=== PATIENT | male | born 1960 | race Caucasian/White ===

== ENCOUNTER → 2016-09-08 | Outpatient (CLI) | payer BC ==
[~2016-09-08] VITALS: Ht 167.6 cm; Wt 83.8 kg
[~2016-09-08] MED LIST: CYMBALTA60 MG PO; FLEXERIL PO; HYDROCODON-ACE1 EAC7 PO; HYDROXYZINE HCL25 M1 PO; IBUPROFEN 600600 M1 PO; IBUPROFEN 800800 M1 PO; LIPITOR40 MG PO; NABUMETONE 750750 M1 PO; NEURONTIN600 MG PO; OXYCODONE HCL E10 MG PO; REQUIP 1 MG TABL1 M1 PO; ROBAXIN 750 MG750 MG PO; TRILEPTAL150 MG PO
[2016-09-08 10:09] VITALS: BP 109/74
== END | disposition home or self-care (01) ==
LOC: PAIN 07:25
DX: M54.16 Radiculopathy, lumbar region (principal); F17.200 Nicotine dependence, unspecified, uncomplicated; Z98.890 Other specified postprocedural states; Z88.8 Allergy status to other drugs, medicaments and biological substances

== ENCOUNTER → 2016-10-14 | Outpatient (CLI) | payer BC ==
[~2016-10-14] VITALS: Ht 170.2 cm; Wt 83.0 kg
--- NOTE | ~2016-10-14 | HPC ---
[facility] [address] [place] [address] PAIN MANAGEMENT CONSULTATION Name: SINGH AVERY Room #: REG ANDREI Christie.#: [id number] Admission: 10/14/16 Attend Phys: Rodolfo Hoffman DO Discharge: Date of : 62 Report #: [id number] THIS REPORT FOR: //name// CC: JOSELIN Hoffman HISTORY OF PRESENT ILLNESS: The patient is a very pleasant 56-year-old gentleman being treated for lumbar radiculopathy status post decompressive laminectomy and fusion L3 through L5. Has ongoing right L2 and L3 radicular pain. He had 50% improvement following transforaminal epidural injection with still ongoing symptoms, concern for paresthesia in the leg. Strength is generally symmetric, slight decreased right hip flexion strength. The patient has started on Trileptal taking 2 at night with nominal efficacy. Does have some RLS symptoms, which have been longstanding, takes Requip 4 mg (1 mg 4 tablets at bedtime), he has started taking this in the morning due to ongoing spasm and paresthesia in the right leg. ASSESSMENT: Symptomatic lumbar radiculopathy status post decompressive laminectomy, neuropathic pain component in a gentleman who uses tobacco products, was counseled regarding smoking cessation. RECOMMENDATIONS: 1. We will increase Trileptal to 1 in the morning, 2 at night, I have taken the liberty of generating a 90 tablet prescription with 1 refill. 2. Repeat epidural injection today, we will trial a right of midline L2-L3 approach. Follow up in 3 weeks to evaluate efficacy. ASSESSMENT: Symptomatic lumbar radiculopathy status post decompressive laminectomy and fusion. PROCEDURE: Midline epidural injection under fluoroscopy. PROCEDURE NOTE: After both written and informed consent to include risk of spinal cord damage, increased pain, weakness and dural puncture, the patient was taken to the fluoroscopy suite, placed in the prone position. After sterile prep and drape, a skin wheal with lidocaine was raised. A 22-gauge epidural Tuohy needle was inserted in the midline at L2-L3 with good loss to resistance. Negative aspiration for cerebrospinal fluid or blood was noted. Then 1 mL of Omnipaque under biplanar fluoroscopy showed good spread within the epidural space. This was followed with 80 mg of triamcinolone plus 1 mL of 1.5% preservative-free Xylocaine, 0.5 mL Xylocaine was then injected to flush the [address] [address] PAIN MANAGEMENT CONSULTATION Name: GENASINGH GERARDO Room #: REG [facility] [id number] Admission: 10/14/16 Attend Phys: Rodolfo Hoffman DO Discharge: Date of : 62 Report #: [id number] needle; it was removed. The patient was monitored for an appropriate period of time and discharged in good and stable condition. <ELECTRONICALLY SIGNED> By: Rodolfo Hoffman DO 10/14/16 1225 [id number] Rodolfo Hoffman DO /ryanne
[2016-10-14 08:18] VITALS: BP 119/88
== END | disposition home or self-care (01) ==
LOC: PAIN 06:56
DX: M54.16 Radiculopathy, lumbar region (principal); Z98.890 Other specified postprocedural states; G62.9 Polyneuropathy, unspecified; F17.200 Nicotine dependence, unspecified, uncomplicated

== ENCOUNTER → 2016-11-18 | Outpatient (CLI) | payer BC ==
[~2016-11-18] VITALS: Ht 167.6 cm; Wt 79.4 kg
--- NOTE | ~2016-11-18 | HPC ---
[facility] [place] [address] [place] [address] PAIN MANAGEMENT CONSULTATION Name: SINGH AVERY Room #: REG Chito Christie.#: [id number] Admission: 11/18/16 Attend Phys: Rodolfo Hoffman DO Discharge: Date of : 62 Report #: [id number] THIS REPORT FOR: //name// CC: JOSELIN Hoffman DATE OF SERVICE: 11/18/2016 DATE OF SERVICE: 11/18/2016 HISTORY OF PRESENT ILLNESS: The patient is a 56-year-old gentleman initially seen in consultation back in 2014, was seen for symptomatic cervical radiculopathy at that time. He also had a component of left L4 radicular pain. He was somewhat lost to followup, returned to the pain clinic on 09/08/2016. He had recurrent pain, low back, right hip, groin and thigh. Status post laminectomy and fusion L3 through L5. Performed right L2-L3 transforaminal epidural injection. He returned on 10/14/2016 noting 50% improvement following the transforaminal epidural injection (right L2-L3), but the pain continued to problematic. We started Trileptal 2 tablets at night with nominal efficacy. He had discontinued gabapentin due to some hypotension. We progressed with the midline epidural injection at that visit. He returns to pain clinic today noting that the midline injection really afforded no significant relief. He thinks that Trileptal may be interfering with his vision. He notes ongoing pain, low back, right thigh and groin, exacerbated with activity. He rates the pain as a 4 on VAS presently, says it gets worse with work. He has a sales development coordinator structural welder. He was seen for prolonged visit today from 8:54 to 9:20. Greater than 50% of this 25+ minute visit was spent counseling the patient. The patient is loathe to use opiate analgesics. He has failed conservative therapy including sodium and calcium channel membrane stabilizing agents (Trileptal and gabapentin). We will have him wean off of the Trileptal due to lack of efficacy and some visual changes. Again, gabapentin did not afford a good efficacy and the patient felt that it made of a little bit hypotensive. He is frustrated that pain is interfering with function. PHYSICAL EXAMINATION: Shows a 56-year-old gentleman, BMI is 28.3 kilograms per meter squared. Vital signs stable as noted in the EMR. Alert and oriented to person, place and time, judged to be a reasonable historian. Rises from chair using armrest. Gait is tandem, but he has decreased right hip flexion and lower extremity extension strength. This, however, is fairly nominal. He can climb up and down stairs, states that weakness does not interfere with function, simply pain does. He has a followup appointment with his neurosurgeon next week. Again, he had only transient relief with epidural injections, both right [address] [address] PAIN MANAGEMENT CONSULTATION Name: SINGH AVERY Room #: REG ANDREI Nieves#: [id number] Admission: 11/18/16 Attend Phys: Rodolfo Hoffman DO Discharge: Date of : 62 Report #: [id number] L2-L3 transforaminal and right midline L2-L3 translaminar. IMAGING: I reviewed his MRI from 09/11/2016. Notes the aforementioned postoperative changes, L3 through L5 decompression and fusion. L2-L3 notes degenerative loss of disk height, small epidural soft tissue abnormality extending behind right of L3 abutting the nerve root, suggestive of postoperative changes. ASSESSMENT AND PLAN: We talked about therapeutic options. While he would be an excellent spinal cord stimulator candidate, unfortunately, as a structural welder, the electric field generated contraindicates spinal cord stimulator. We talked at length about this today. Understanding that with the spinal cord stimulator, he would not be able to return to work, he points out that with his current pain, he cannot continue to work either. He is very frustrated at this point. He is going to follow up with his surgeon. If there is a possible surgical intervention that does not involve extensive revision of his fusion, he would be interested in this. If, however, surgery is either not an option or the surgery is quite extensive, he would prefer to trial a spinal cord stimulator. He has obviously failed back surgery with ongoing radicular pain interfering with function and work. 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 Today, after a long discussion, the patient left with the following instructions: 1. Follow up with his surgeon next week. 2. Wean off of Trileptal, drop down to 2 tablets at night for 3 days, 1 tablet at night for 3 days, then discontinue. 3. Use given contact information for psychological evaluation if he wishes to move forward with spinal cord stimulator trial. 4. He was given print/video literature regarding Nevro high frequency stimulation. He was discharged in good and stable condition. Follow up will be as needed. Again, we will be happy to seek authorization for spinal cord stimulator trial at earliest possible date if the patient desire to move forward, again, we will require a psychological evaluation before moving forward with authorization for same. <ELECTRONICALLY SIGNED> By: Rodolfo Hoffman DO 11/21/16 1014 [id number] [id number] Rodolfo Hoffman DO /nt
[2016-11-18 08:38] VITALS: BP 144/88
== END | disposition home or self-care (01) ==
LOC: PAIN 07:03
DX: M54.12 Radiculopathy, cervical region (principal); F17.210 Nicotine dependence, cigarettes, uncomplicated

== ENCOUNTER → 2016-11-24 | Outpatient (CLI) | payer BC ==
[2016-11-24 13:13] LABS: CREATININE 0.8 mg/dL (0.7-1.3)
== END ==
LOC: LABMALL 12:38 → CAT 12:38
PROVIDERS: Neurological Surgery
DX: M47.816 Spondylosis without myelopathy or radiculopathy, lumbar region (principal); M48.16 Ankylosing hyperostosis [Forestier], lumbar region; M48.061 Spinal stenosis, lumbar region without neurogenic claudication

== ENCOUNTER → 2016-11-25 | Outpatient (CLI) | payer BC | END | disposition home or self-care (01) | LOC: RAD 08:59 | DX: M48.061 Spinal stenosis, lumbar region without neurogenic claudication (principal); M25.78 Osteophyte, vertebrae; M79.604 Pain in right leg; Z88.8 Allergy status to other drugs, medicaments and biological substances; Z79.899 Other long term (current) drug therapy ==

== ENCOUNTER → 2017-08-11 | Outpatient (CLI) | payer BC ==
[~2017-08-11] VITALS: Ht 170.2 cm; Wt 84.2 kg
[~2017-08-11] MED LIST changes: +HYDROCODONE-AP1 EAC6 PO; +IBUPROFEN 200200 M1 PO; +TRAMADOL 50 MG50 MG PO
--- NOTE | ~2017-08-11 | HPC ---
[facility] [place] [address] [place] [address] PAIN MANAGEMENT CONSULTATION Name: SINGH AVERY Room #: REG ANDREI Soriano.#: [id number] Admission: 08/11/17 Attend Phys: Susanna Gutierrez MD Discharge: Date of : 62 Report #: [id number] THIS REPORT FOR: //name// CC: JOSELIN Villanueva MD Physician staff DATE OF SERVICE: 08/11/2017 FOLLOWUP COMPLAINT: Pain and discomfort in the low back that goes down into the right leg, right groin, and into the right thigh. FOLLOWUP HISTORY: The patient is a 56-year-old gentleman who has been seen in the pain clinic by Dr. Rodolfo Hoffman. This is my first time meeting with this gentleman. He has a significant history of back problems. He has undergone back surgeries on 3 occasions. At this juncture, he has spinal surgery with screws and rods in the lumbar L3, L4, and L5 areas. At this juncture, he has continued to have pain and discomfort, which involves his right L2 nerve distribution. 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 Notes that there is pain and discomfort involving the right groin area/inner thigh. This area can be quite problematic. He is continuing to take medications of tramadol 50 mg about 4 times per day. He finds that ibuprofen is somewhat helpful. He has talked with Dr. Villanueva. He states that Dr. Villanueva at this juncture is not sure that additional surgery would be beneficial. He has talked with Dr. Rodolfo Hoffman. The patient has tried gabapentin. He has tried Trileptal. He has been given the option of considering nerve stimulation with a dorsal column stimulator. He works around high voltage welding equipment. Does not feel that a stimulator would be reasonable in this line of work at this juncture. The patient tries to refrain from use of any opioid medications. I am not sure whether or not they would be okayed at his job. States that he is aware of some people who are using opioid medications. He is somewhat concerned that given his young age of 56 years to stop at this juncture would be pretty devastating for him as well as his family and their economics. ALLERGIES: No known drug allergies. CURRENT MEDICATIONS: Tramadol 50 mg q.4 hours p.r.n.; ibuprofen 200 mg q. 4 hours p.r.n.; Requip 1 mg, takes 4 mg at bedtime; and Lipitor 40 mg. PAIN CLINIC ASSESSMENT: 1. History of osteoarthritis. The patient has some arthritic change in his low back area with surgeries in the lumbar area with rods and pedicle screws. [address] [address] PAIN MANAGEMENT CONSULTATION Name: SINGH AVERY Room #: REG CLI [facility].#: [id number] Admission: 08/11/17 Attend Phys: Susanna Gutierrez MD Discharge: Date of : 62 Report #: [id number] 2. Height 5 feet 7 inches, weight 185 pounds, BMI is 29. 3. Vital signs: Blood pressure 161/101, pulse 65, respiratory rate 16, room air saturation is 97. 4. Pain intensity 05/30. 5. Fall risk. The patient has not fallen in the last 3 months. 6. Blood thinner. The patient is not on a blood thinning medication. 7. Hypertension. The patient is being treated for hypertension. 8. Opiate therapy greater than 6 weeks. The patient is on tramadol and takes his medications on a daily basis. 9. Risk assessment tool. 10. Functional assessment tool. 11. Recreational drug use. The patient denies use of recreational drugs. 12. Tobacco: The patient smokes 1-1/2 pack of cigarettes per day. 13. Alcohol use. The patient occasional alcoholic use. PHYSICAL EXAMINATION: GENERAL: The patient is a well-developed white male, appears his stated age. He is alert and oriented x 3. His affect is appropriate. His is present. HEENT: Normocephalic, atraumatic. Extraocular eye muscles intact. Sclerae is nonicteric. Hearing is within normal limits. Mucous membranes are moist. NECK: Without adenopathy or JVD. HEART: Regular rate. ABDOMEN: Nontender. LUNGS: Nonlabored without rales or rhonchi. EXTREMITIES: Upper extremity, muscle strength is judged to be 5/5 for the major muscle groups with symmetry in muscle bulk. Lower extremity, the patient complains of pain and discomfort in the lower portion of his back. Has pain and discomfort in the right groin area in the L2 distribution as well as some discomfort in the groin area. The patient sits leaning to the left, notes that leaning toward the right exacerbates the pain and discomfort and becomes more problematic in the L2 dermatomal distribution. IMPRESSION: 1. Status post back surgery with continued pain and discomfort. Pain in the L2 dermatomal distribution on the right. 2. Hypertension. 3. Chronic intractable neuropathic pain. 4. Restless leg syndrome. RECOMMENDATIONS: We discussed treatment options with the patient. At this juncture, we will try Gralise (gabapentin) slow release. We have given the patient a script for this medication. He will take it as prescribed. He will call us if he has any problems with the medication. We have also provided the patient with hydrocodone 5/325. He will take the medication at home and note its effect. Hopefully, he finds that this medication is helpful, that he is able to control his pain and discomfort and remain gainfully employed. We would [facility] [address] [place] [address] PAIN MANAGEMENT CONSULTATION Name: SINGH AVERY [facility] #: [facility] [id number] Admission: 08/11/17 Attend Phys: Susanna Gutierrez MD Discharge: Date of : 62 Report #: [id number] like to thank you for letting us participate in his care. The patient states that he lives quite a distance from the pain clinic. He will call us if he has any concerns. By: [id number] Susanna Gutierrez MD /MARTHA
[2017-08-11 08:07] VITALS: BP 161/101
== END ==
LOC: PAIN 01-23 13:02
DX: I10 Essential (primary) hypertension (principal); G89.4 Chronic pain syndrome; M54.5 Low back pain; M79.605 Pain in left leg; G25.81 Restless legs syndrome; Z98.1 Arthrodesis status; Z87.891 Personal history of nicotine dependence

== ENCOUNTER → 2017-10-13 | Outpatient (CLI) | payer BC ==
[~2017-10-13] VITALS: Ht 170.2 cm; Wt 83.0 kg
[~2017-10-13] MED LIST changes: +GRALISE600 MG PO; +MEDROLDOSEPACK PO; +NORCO 5-325 TA1 EACH PO
--- NOTE | ~2017-10-13 | HPC ---
[facility] [address] [place] [address] PAIN MANAGEMENT CONSULTATION Name: SINGH AVERY Room #: REG ANDREI CopelandStefaniaBeth.#: [id number] Admission: 10/13/17 Attend Phys: Susanna Gutierrez MD Discharge: Date of : 62 Report #: [id number] THIS REPORT FOR: //name// CC: JOSELIN Gutierrez Physician staff DATE OF SERVICE: 10/13/2017 FOLLOWUP COMPLAINT: Here for renewal of medication. FOLLOWUP HISTORY: The patient is a 57-year-old gentleman who has been followed in the Pain Clinic because of chronic pain. As you recall, he has had some back surgeries. He has had surgery on three occasions. As noted some worsening of pain and discomfort again. Feels that it is on the left outside portion of his leg and about the L5-S1 area. Also, has pain in his right anterior thigh area approximately L2-L3. Notes that if he leans to the left, he has noted some worsening of pain and discomfort in the left leg. Leaning to the right, he has noted some increased pain and discomfort in the L2-L3 anterior portion of his thigh. Overall, he feels that he is limited in his ability to engage in certain activities. 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 He is somewhat concerned that he has had some recurrence of pain similar to that he had experienced in the past. He is not walking with a cane or anything, but feels that that might reoccur. This has left him in a conundrum. He was told by Dr. Villanueva the possibilities of surgery or injections are available. At this juncture, the patient is still trying to decide what approach he would like to take. He denies any bowel or bladder dysfunction. He feels that the Gralise medication is helpful. He also feels that hydrocodone was beneficial. He has not had any problems with the use of these medications. They are not clouding his sensorium. He is thinking clearly. He would like to continue with his medication and has returned for renewal of these medications. ALLERGIES: No known drug allergies. CURRENT MEDICATIONS: Tramadol 50 mg q.4 hours, ibuprofen 200 mg, Requip 1 mg, Lipitor 40 mg, gabapentin/Gralise, hydrocodone 5/325 one tablet b.i.d. PAIN CLINIC ASSESSMENT: 1. History of osteoarthritis in the lower back. 2. The patient has not been treated for rheumatoid arthritis. 3. Height 5 feet 7 inches, weight 183 pounds, BMI 28.7. 4. Vital signs: Blood pressure is 110/66, pulse 80, respiratory rate 14, room air saturation 97%. 5. Pain intensity 10. 6. Fall risk. The patient has not fallen in the last 3 months. 7. Blood thinner. The patient is not [place] [address] PAIN MANAGEMENT CONSULTATION Name: SINGH AVERY Room #: REG ANDREI Nieves#: [id number] Admission: 10/13/17 Attend Phys: Susanna Gutierrez MD Discharge: Date of : 62 Report #: [id number] 8. Hypertension. The patient has not been treated for hypertension. 9. Opioid therapy greater than 6 weeks. The patient has received hydrocodone to the Pain Clinic. 10. Risk assessment tool, low for opioid risk. 11. Functional assessment tool /. 12. Recreational drug use. The patient denies use of recreational drugs. 13. Tobacco: The patient smokes 1/2 pack of cigarettes and smoked for 30 years. 14. Alcohol: The patient denies frequent use of alcoholic beverages. PHYSICAL EXAMINATION: GENERAL: The patient is a well-developed, well-nourished white male. Appears his stated age. He is alert and oriented x 3. His affect is calm. HEENT: Normocephalic, atraumatic. Extraocular eye muscles intact. Sclerae nonicteric. Mucous membranes are moist. Hearing is within normal limits. NECK: Good range of motion without adenopathy or bruits. HEART: Regular rate. S1, S2. LUNGS: Clear to auscultation without rhonchi or rales. EXTREMITIES: Upper extremity muscle strength is judged to be 5/5 for the major muscle groups without sensory change or weakness, lower extremity muscle strength is judged to be 5/5 for the major muscle groups in the lower extremity. The patient has some pain and discomfort in the left L5-S1 area of his calf. The patient states that it involves the area down by his calf. The patient has some pain and discomfort in the L2-L3 area of the right anterior thigh. IMPRESSION: 1. Status post back surgery, three occasions with rods and pedicle screws in place. 2. Hypertension. 3. Chronic intractable neuropathic pain. 4. Restless leg syndrome. RECOMMENDATION: We discussed treatment options with the patient. Risks and benefits of an epidural steroid injection were discussed. At this juncture, we will try a conservative approach. The patient will try a Medrol Dosepak and note its efficacy. He will consider the possibility of undergoing epidural steroid injections in the future. He will continue with the gabapentin 600 mg 1 p.o. t.i.d. as well as hydrocodone 5/325. The patient will not use this medication. 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 [facility] [address] [place] [address] PAIN MANAGEMENT CONSULTATION Name: SINGH AVERY Room #: REG CLChito Soriano.#: [id number] Admission: 10/13/17 Attend Phys: Susanna Gutierrez MD Discharge: Date of : 62 Report #: [id number] We would like to thank you for letting us participate in his care. We hope he continues to improve. By: [id number] Susanna Gutierrez MD /nt
[2017-10-13 08:13] VITALS: BP 110/66
== END ==
LOC: PAIN 06:57
DX: M54.5 Low back pain (principal); G89.4 Chronic pain syndrome; I10 Essential (primary) hypertension; M79.2 Neuralgia and neuritis, unspecified; G25.81 Restless legs syndrome; Z79.899 Other long term (current) drug therapy

== ENCOUNTER → 2018-01-10 | Outpatient (CLI) | payer BC ==
[~2018-01-10] VITALS: Ht 170.2 cm; Wt 85.2 kg
[2018-01-10 08:58] VITALS: BP 114/75
== END ==
LOC: PAIN 06:28
DX: M54.5 Low back pain (principal); M79.651 Pain in right thigh; M19.90 Unspecified osteoarthritis, unspecified site; F17.200 Nicotine dependence, unspecified, uncomplicated; M25.551 Pain in right hip; M79.662 Pain in left lower leg; R10.30 Lower abdominal pain, unspecified; Z79.891 Long term (current) use of opiate analgesic

== ENCOUNTER → 2018-04-13 | Outpatient (CLI) | payer BC ==
[~2018-04-13] VITALS: Ht 170.2 cm; Wt 89.1 kg
[2018-04-13 08:23] VITALS: BP 120/85
--- NOTE | 2018-04-13 08:30 | NUR ---
Pain Clinic Assessment: 1. History of Osteoarthritis: YES History of Rheumatoid Arthritis: NO 2. Height: 5 ft. 7 in. 170.2 cm. Weight: 196.4 lb. oz. 89.087 kg. Patient's BMI: 30.8 3. Vital Signs: BP: 120/85 Pulse: 90 Resp: 14 Temp: 02 Sat: 14 ECG Mon: 4. Pain Intensity: 7-8 5. Fall Risk: Dizziness: N Needs help standing or walking: N Fallen in the last 3 months: N Fall risk comments: 6. Patient on Blood Thinner: None 7. History of Hypertension: N 8. Opioid Therapy greater than 6 weeks: Y Opiate Contract Signed: 10/13/17 9. Risk Assessment Tool Provided: Opioid Risk Tool 10. Functional Assessment Tool: 44 11. Recreational Drug Use: Never Drug Type: Tobacco Use: Current Every Day Smoker Tobacco Type: Cigarettes Amount or Packs/day: <1/2 How Many Years: Alcohol Use: No Frequency: Quant:
== END ==
LOC: PAIN 06:53
DX: M54.5 Low back pain (principal); M79.605 Pain in left leg; M79.604 Pain in right leg; M79.651 Pain in right thigh; F17.210 Nicotine dependence, cigarettes, uncomplicated; Z79.899 Other long term (current) drug therapy

== ENCOUNTER → 2018-07-13 | Outpatient (CLI) | payer BC ==
[~2018-07-13] VITALS: Ht 170.2 cm; Wt 87.0 kg
--- NOTE | ~2018-07-13 | HPC ---
[facility] [address] [place] [address] PAIN MANAGEMENT CONSULTATION Name: SINGH AVERY Room #: REG ANDREI CopelandStefaniaBeth.#: [id number] Admission: 07/13/18 ������������������ Attend Phys: Susanna Gutierrez MD Discharge: ������������������ Date of : 62 Report #: [id number] THIS REPORT FOR: //name// CC: JOSELIN Gutierrez DATE OF SERVICE: 07/13/2018 CHIEF COMPLAINT: Here for medication management. FOLLOWUP HISTORY: The patient is a 57-year-old gentleman, who has been followed in the Pain Clinic for medical management. He has had a number of back surgeries. Pain continues to be a problem. He has had fusion in his low back area. He has talked with his surgeon. At this juncture, his surgeon feels that he is not sure that surgery would be significantly beneficial. He has encouraged the patient to continue with a conservative approach, being managed with medications. The patient has considered the possibility of a spinal cord stimulator. 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 He has returned today for renewal of his medications. He feels that he is still using his medications and they are working reasonably well. He is having no side effects from them. He is able to think clearly. He is able to work in his environment without problem. ALLERGIES: No known drug allergies. CURRENT MEDICATIONS: Tramadol 50 mg one p.o. q. 4 hours, ibuprofen 200 mg, Requip 1 mg, Lipitor 40 mg, hydrocodone 5/325 one p.o. b.i.d., Gralise 600 mg t.i.d. PAST MEDICAL HISTORY, PAIN CLINIC ASSESSMENT AND PQRS: 1. The patient has a history of arthritic change in his low back area. He has undergone a number of surgeries. 2. He is not being treated for rheumatoid arthritis. 3. Height is 5 feet 7 inches, weight 196 pounds, BMI is 30. 4. Vital signs: Blood pressure 120/85, pulse is 90, respiratory rate 14, room air saturation is 94. 5. Pain intensity of 7-8 with activity and driving. Pain involves left calf and right thigh. 6. Blood thinner: The patient is not on a blood thinning medication. 7. Hypertension: The patient is not being treated for hypertension. 8. Opioids greater than 6 weeks: The patient is on an opioid medication and managed through the Pain Clinic. 9. Functional assessment tool: 44/70. 10. Recreational drug use: The patient denies. [address] [address] PAIN MANAGEMENT CONSULTATION Name: SINGH AVERY Room #: REG [facility]#: [id number] Admission: 07/13/18 ������������������ Attend Phys: Susanna Gutierrez MD Discharge: ������������������ Date of : 62 Report #: [id number] 11. Tobacco: The patient smokes less than one-half cigarettes per day. Again, we discussed the benefits of smoking cessation. 12. Alcohol: The patient drinks alcohol on occasional basis. PHYSICAL EXAMINATION: GENERAL: The patient is a well-developed, well-nourished, white male. He appears his stated age. He is alert and oriented x 3. His affect is appropriate. Speech is fluent. HEENT: Normocephalic, atraumatic. Extraocular eye muscles intact. Sclerae nonicteric. Mucous membranes are moist. HEENT: Normocephalic, atraumatic. Extraocular eye muscles intact. NECK: With good range of motion without adenopathy or bruits. HEART: Regular rate. S1 and S2. LUNGS: Clear to auscultation without rhonchi or rales. MUSCULOSKELETAL: Upper extremity muscle strength is judged to be 5/5 for the major muscle groups in the upper extremity. Lower extremity muscle strength is judged to be 5-/5. The patient has increased pain and discomfort when he is seated. He notes increased pain with bending while welding and leaning forward. He notes the pain continues to radiate down the L5-S1 dermatomal distribution in his left calf. The patient notes the pain is worse in the late afternoon as well as notes some pain in the L2-L3 area with forward leaning involving the right thigh. IMPRESSION: 1. Status post back surgery on three occasions with rods and pedicle screws in place. 2. Hypertension. 3. Chronic intractable pain with neuropathic component. 4. Restless leg syndrome. RECOMMENDATIONS: We discussed treatment options with the patient. At this juncture, we will continue with his medications. We will renew his medication. The patient is aware of the problems with opioids. He is aware that one can develop tolerance to this medication. He feels the medication is helpful and enables him to stay gainfully employed. He is able to think clearly. He is having no problems with working and his capacity. He would like to have his medications renewed. We discussed the risks and benefits of tobacco smoke and benefits of smoking cessation. We will continue with the patient's medication. A script for his medication for the next few months have been dispersed. He will call us should he have any concerns. Hopefully, he will continue to improve as time goes on. The patient will remain active. He will call us should he have any concerns. [address] [address] PAIN MANAGEMENT CONSULTATION Name: SINGH AVERY Room #: REG [facility].#: [id number] Admission: 07/13/18 ������������������ Attend Phys: Susanna Gutierrez MD Discharge: ������������������ Date of : 62 Report #: [id number] We would like to thank you for letting us participate in his care. ��������������������������������������������� ���������������������������������������� By: ��������������������������������������������� [id number] [id number] Susanna Gutierrez MD /nt
[2018-07-13 08:24] VITALS: BP 108/76
--- NOTE | 2018-07-13 08:30 | NUR ---
Pain Clinic Assessment: 1. History of Osteoarthritis: YES History of Rheumatoid Arthritis: NO 2. Height: 5 ft. 7 in. 170.2 cm. Weight: 191.8 lb. oz. 87.000 kg. Patient's BMI: 30.0 3. Vital Signs: BP: 108/76 Pulse: 79 Resp: 14 Temp: 02 Sat: ECG Mon: 4. Pain Intensity: 4 5. Fall Risk: Dizziness: N Needs help standing or walking: N Fallen in the last 3 months: N Fall risk comments: 6. Patient on Blood Thinner: None 7. History of Hypertension: N 8. Opioid Therapy greater than 6 weeks: Y Opiate Contract Signed: 10/13/17 9. Risk Assessment Tool Provided: Opioid Risk Tool 10. Functional Assessment Tool: 44 11. Recreational Drug Use: Never Drug Type: Tobacco Use: Current Every Day Smoker Tobacco Type: Cigarettes Amount or Packs/day: 1/2 How Many Years: Alcohol Use: No Frequency: Monthly Quant: 1-2
== END ==
LOC: PAIN 06:46
DX: Z76.0 Encounter for issue of repeat prescription (principal); I10 Essential (primary) hypertension; G89.4 Chronic pain syndrome; G25.81 Restless legs syndrome; Z79.899 Other long term (current) drug therapy; Z96.7 Presence of other bone and tendon implants

== ENCOUNTER → 2018-10-19 | Outpatient (CLI) | payer BC ==
[~2018-10-19] VITALS: Ht 170.2 cm; Wt 81.8 kg
--- NOTE | ~2018-10-19 | HPC ---
[facility] [address] [place] [address] PAIN MANAGEMENT CONSULTATION Name: SNIGH AVERY Room #: REG ANDREI Ezequiel#: [id number] Admission: 10/19/18 Attend Phys: Susanna Gutierrez MD Discharge: Date of : 62 Report #: [id number] THIS REPORT FOR: //name// CC: JOSELIN Gutierrez Physician staff DATE OF SERVICE: 10/19/2018 CHIEF COMPLAINT: Here for medications and I fell off a ladder. HISTORY: The patient is a 58-year-old gentleman who has been followed in the Pain Clinic because of chronic pain. As you recall, he has significant back problems. He has undergone surgeries. He continues to find his pain is problematic and feels that opioid medications have been helpful. He is able to continue to work. He has continued to take the medications as prescribed. He feels that they continue to be beneficial. He has had no complications with their use. He has considered the possibility of a spinal cord stimulator. 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 States that he was working up on high elevation. Feels that it was about 14 feet up. He was standing on a ladder. The ladder gave way. He fell. He fell down on the side of his house. There was a wall there. He fell on his left side and fractured some ribs, injured his elbow and has had trauma to his thigh. Feels that the ribs have begun to heal up. He was quite elated that he did not traumatize his back significantly. He has returned today for renewal of his medications. ALLERGIES: No known drug allergies. CURRENT MEDICATIONS: Tramadol 50 mg one p.o. q. 4 hours, ibuprofen 200 mg, Requip 1 mg, Lipitor 40 mg, hydrocodone 5/325 one p.o. b.i.d., Gralise 600 mg t.i.d. PAIN CLINIC ASSESSMENT/PQRS: 1. The patient has a history of arthritis in his low back area. He has undergone a number of surgeries. He is not being treated for rheumatoid arthritis. 2. Height 5 feet 7 inches, weight 191 pounds, BMI is 30. 3. Vital Signs: Blood pressure 108/76, pulse 79, respiratory rate 14, room air saturation is about 95%. 4. Pain intensity, 4/10. 5. Fall history: The patient has fallen. He fell in July from a ladder about 14 feet with some trauma to his left side with fractures of his ribs, injury of elbow and left knee area. 6. Blood thinner. The patient is not on a blood thinning medication. 7. Hypertension. The patient is not being treated for hypertension. 8. Opioids greater than 6 weeks. The patient receives medication from [address] [address] PAIN MANAGEMENT CONSULTATION Name: SINGH AVERY Room #: REG CLI [facility]#: [id number] Admission: 10/19/18 Attend Phys: Susanna Gutierrez MD Discharge: Date of : 62 Report #: [id number] source the Pain Clinic. 9. Risk assessment tool, low for opioid use. 10. Functional assessment tool, . 11. Recreational drug use. The patient denies. 12. Tobacco: The patient smokes daily. Smokes 1-1/2 pack of cigarettes per day, has smoked for a number of years. Benefits of smoking cessation has been discussed. 13. Alcohol. The patient denies frequent use of alcoholic beverages. Drinks about 1-2 alcoholic beverages monthly. PHYSICAL EXAMINATION: GENERAL: The patient is a well-developed, well-nourished white male. Appears his stated age. He is alert and oriented x 3. His affect is appropriate. Speech is fluent. HEENT: Normocephalic, atraumatic. Extraocular eye muscles intact. Sclerae nonicteric. Mucous membranes are moist. NECK: Without adenopathy or JVD. HEART: Regular rate. S1, S2. LUNGS: Clear to auscultation without rhonchi or rales. MUSCULOSKELETAL: Strength judged to be 5/5 for the major muscle groups in the upper extremity. Lower extremity muscle strength 5-/5. The patient has some pain and discomfort in the left elbow, which has some swelling. Also, has some continued swelling and soreness in the left area of his rib fractures. Has some healing on the left leg lateral side. IMPRESSION: 1. Status post back surgery on 3 occasions with rods and pedicle screws in place. 2. Hypertension. 3. Chronic intractable pain with neuropathic component. 4. Restless leg syndrome. RECOMMENDATIONS: We discussed treatment options with the patient. At this juncture, we will continue with his medication. He feels that the medications are helpful. He is finding benefit with the use of the gabapentin. Notes that the hydrocodone medication can be helpful as well. 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 This causes him to have increased discomfort because of the different positions required for his welding operations. He would like to continue with his medications. He is aware that 70,000 people as a result of opioid overdose last year. He is aware that the opioid medications can be less effective over time secondary to development of tolerance. A script for hydrocodone 5/325 one p.o. b.i.d. has been written. He has been provided a 3-month supply. He will also continue with gabapentin as written. [facility] [address] [place] [address] PAIN MANAGEMENT CONSULTATION Name: SINGH AVERY Room #: REG ANDREI Nieves#: [id number] Admission: 10/19/18 Attend Phys: Susanna Gutierrez MD Discharge: Date of : 62 Report #: [id number] We would like to thank you for letting us participate in his care. We hope he continues to improve. By: [id number] Susanna Gutierrez MD /nt
[2018-10-19 08:10] VITALS: BP 119/76
--- NOTE | 2018-10-19 08:17 | NUR ---
Pain Clinic Assessment: 1. History of Osteoarthritis: YES History of Rheumatoid Arthritis: NO 2. Height: 5 ft. 7 in. 170.2 cm. Weight: 180.4 lb. oz. 81.829 kg. Patient's BMI: 28.2 3. Vital Signs: BP: 119/76 Pulse: 62 Resp: 16 Temp: 02 Sat: 98 ECG Mon: 4. Pain Intensity: 3 5. Fall Risk: Dizziness: N Needs help standing or walking: N Fallen in the last 3 months: N Fall risk comments: 6. Patient on Blood Thinner: None 7. History of Hypertension: N 8. Opioid Therapy greater than 6 weeks: Y Opiate Contract Signed: 10/13/17 9. Risk Assessment Tool Provided: Opioid Risk Tool 10. Functional Assessment Tool: 44 11. Recreational Drug Use: Never Drug Type: Tobacco Use: Current Every Day Smoker Tobacco Type: Cigarettes Amount or Packs/day: 1/2 How Many Years: Alcohol Use: Yes Frequency: Monthly Quant: 1-2
== END ==
LOC: PAIN 07:47
DX: G89.29 Other chronic pain (principal); I10 Essential (primary) hypertension; G89.4 Chronic pain syndrome; G25.81 Restless legs syndrome; Z79.899 Other long term (current) drug therapy; Z98.890 Other specified postprocedural states

== ENCOUNTER → 2019-01-11 | Outpatient (CLI) | payer BC ==
[~2019-01-11] VITALS: Ht 170.2 cm; Wt 79.4 kg
[2019-01-11 09:42] VITALS: BP 123/81
--- NOTE | 2019-01-11 09:50 | NUR ---
Pain Clinic Assessment: 1. History of Osteoarthritis: spine hands knees History of Rheumatoid Arthritis: NO 2. Height: 5 ft. 7 in. 170.2 cm. Weight: 175.0 lb. oz. 79.380 kg. Patient's BMI: 27.4 3. Vital Signs: BP: 123/81 Pulse: 82 Resp: 16 Temp: 02 Sat: 100 ECG Mon: 4. Pain Intensity: 7 5. Fall Risk: Dizziness: N Needs help standing or walking: N Fallen in the last 3 months: N Fall risk comments: 6. Patient on Blood Thinner: None 7. History of Hypertension: N 8. Opioid Therapy greater than 6 weeks: Y Opiate Contract Signed: 10/13/17 9. Risk Assessment Tool Provided: low-0 10. Functional Assessment Tool: 11. Recreational Drug Use: Never Drug Type: Tobacco Use: Current Every Day Smoker Tobacco Type: Cigarettes Amount or Packs/day: 1/2 pack How Many Years: 37 Alcohol Use: No Frequency: Quant:
--- NOTE | 2019-01-14 07:57 | HPC ---
[facility] [address] [place] [address] PAIN MANAGEMENT CONSULTATION Name: SINGH AVERY Room #: REG Chito MMacy.#: [id number] Admission: 01/11/19 Attend Phys: Ailin Ramirez Discharge: Date of : 62 Report #: [id number] THIS REPORT FOR: //name// CC: Ailin BRADLEY Physician staff DATE OF SERVICE: 01/11/2019 CHIEF COMPLAINT: Chronic low back pain and lumbar radiculopathy. HISTORY OF PRESENT ILLNESS: This is a pleasant 58-year-old gentleman who returns to the pain clinic today for refill of his opioid medications that he finds very beneficial. 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 He has undergone surgery in the past and is hopeful to avoid any further surgeries. He rates his pain score as 7/10 today. It is elevated due to riding in the car which does increase his pain. He reports he is better when he is standing as well as using his medications. He denies any problem with constipation or daytime sleepiness. He reports his pain is a tingling, aching, constant pain that is located as I stated in his lower back down his right buttock, groin and thigh, occasionally he will have pain sensations in his left calf as well. ALLERGIES: No known drug allergies. CURRENT LIST OF MEDICATIONS: Hydrocodone 5/325 b.i.d. Gralise 600 mg tablets 3 at dinner time, ibuprofen p.r.n., Requip 4 mg at bedtime, atorvastatin 40 mg daily. PQRS: 1. He has a history of arthritic changes in his lumbar spine. Denies rheumatoid arthritis. 2. Height is 5 feet 7 inches, weight is 175, BMI is 27. 3. Vital signs 123/81, pulse is 82, respirations 16, oxygen sat is 100. 4. Pain score is 7/10. 5. Denies dizziness, does not need help walking or standing, has not fallen in the last 3 months. 6. The patient is not on any blood thinners or medicine for hypertension. 7. Opiate therapy is greater than 6 weeks; therefore, an opioid signed contract is on the chart. Risk assessment tool is low. Functional assessment is . 8. Recreational drug use, he denies. He is a current smoker of cigarettes, about half a pack a day and he denies any alcohol use. We did talk about the prescription monitoring system, patient is filling appropriately through his pharmacy in [place], but does not report to the prescription monitoring, but we were able to call them and find out his recent [facility] [address] [place] [address] PAIN MANAGEMENT CONSULTATION Name: GENA,SINGH GERARDO Room #: REG Chito Nieves#: [id number] Admission: 01/11/19 Attend Phys: Ailin Ramirez Discharge: Date of : 62 Report #: [id number] dates. The patient reports he does safeguard his meds at all times. PHYSICAL EXAMINATION: GENERAL: This is a well-developed, well-nourished 58-year-old gentleman who appears his stated age, placing his current pain score at 7/10 today. He is alert and orientated. HEENT: Normocephalic, atraumatic. Extraocular eye muscles are intact. Mucous membranes are moist. NECK: Without adenopathy or JVD. MUSCULOSKELETAL: Lower extremity strength judged to be 5/5 with strength and sensation. He has discomfort in his lumbar spine that radiates into his right leg following L4-L5 dermatomal distribution. He walks with a slightly antalgic gait. IMPRESSION: 1. Status post back surgery causing chronic back pain. 2. Hypertension. 3. Chronic intractable pain with neuropathic component. 4. Restless legs syndrome. 5. Tobacco cessation discussed decreasing. 6. Complex medical management under terms of written opioid agreement. We reviewed the fact that opiate medications are being used to provide analgesia adequate to support activities of daily living, not attempting to achieve a specific pain score on the 0-10 Visual Analog Scale. The current opiate medications are providing sufficient analgesia to allow the patient to participate in activities of daily living. The patient is not exhibiting any aberrant behavior suggestive of drug diversion. The patient is not having any adverse reactions to medications. The patient is not suffering from daytime somnolence or mental acuity changes. The patient is managing opiate-induced constipation with appropriate gwwx-pzl-rbznoar agents and dietary considerations. The patient was counseled on concern for caution with operating a motor vehicle while using opiate medications. A physical exam was performed and the patient's functional status was evaluated. All patients with back pain were advised against the bed rest greater than 4 days and were advised to return to normal activities. Pain score assessment was noted and the treatment plan was reviewed with the patient. All current medications, both prescribed and OTC were reviewed and reconciled on the electronic medical record. Tobacco screening was accomplished and smoking cessation was advised when indicated. BMI was noted and diet/exercise modification was recommended for all patients following outside normal parameters. PLAN: 1. We discussed treatment options with the patient today. At this juncture, we [address] [address] PAIN MANAGEMENT CONSULTATION Name: SINGH AVERY Room #: REG ANDREI Nieves#: [id number] Admission: 01/11/19 Attend Phys: Ailin Ramirez Discharge: Date of : 62 Report #: [id number] will continue his medications, which he finds very beneficial. He is able to continue working, some days he is able to take 2 Gralise tablets when his pain is slightly better this affords him the ability to take 4 on days that his pain has increased significantly. Today, we will electronically send his Gralise 600 mg 3 capsules #270, which is a 3-month supply with one additional refill. 2. We did prescribe hydrocodone 5/325, #60 for today for an 8-week release. This places him at 10 morphine mEq according to the CDC guidelines. 3. We did discuss smoking cessation. He smokes half a pack a day, encouraged him to decrease this, though patient did not seem too interested in this discussion. 4. The patient denies any problems with constipation or daytime sleepiness as a result of his medications. 5. Dr. Sonny Gutierrez did collaborate care today and did see the patient as well. <ELECTRONICALLY SIGNED> By: Ailin Ramirez 01/14/19 [id number] 00 Ailin Ramirez /nt
== END ==
LOC: PAIN 01-09 12:56
DX: M54.16 Radiculopathy, lumbar region (principal); I10 Essential (primary) hypertension; G89.29 Other chronic pain; G25.81 Restless legs syndrome; Z79.891 Long term (current) use of opiate analgesic

== ENCOUNTER → 2019-04-19 | Outpatient (CLI) | payer BC ==
[~2019-04-19] VITALS: Ht 167.6 cm; Wt 81.4 kg
[~2019-04-19] MED LIST changes: +WORK NOTE
[2019-04-19 08:15] VITALS: BP 128/73
--- NOTE | 2019-04-19 08:20 | NUR ---
Pain Clinic Assessment: 1. History of Osteoarthritis: spine hands knees History of Rheumatoid Arthritis: NO 2. Height: 5 ft. 6 in. 167.6 cm. Weight: 179.4 lb. oz. 81.375 kg. Patient's BMI: 29.0 3. Vital Signs: BP: 128/73 Pulse: 79 Resp: 18 Temp: 02 Sat: 98 ECG Mon: 4. Pain Intensity: 4 5. Fall Risk: Dizziness: N Needs help standing or walking: N Fallen in the last 3 months: N Fall risk comments: 6. Patient on Blood Thinner: None 7. History of Hypertension: N 8. Opioid Therapy greater than 6 weeks: Y Opiate Contract Signed: 10/13/17 9. Risk Assessment Tool Provided: low-0 10. Functional Assessment Tool: 11. Recreational Drug Use: Never Drug Type: Tobacco Use: Current Every Day Smoker Tobacco Type: Amount or Packs/day: How Many Years: Alcohol Use: No Frequency: Quant:
--- NOTE | 2019-04-29 22:53 | HPC ---
[facility] [address] [place] [address] PAIN MANAGEMENT CONSULTATION Name: SINGH AVERY Room #: REG ANDREI Soriano.#: [id number] Admission: 04/19/19 Attend Phys: Susanna Gutierrez MD Discharge: Date of : 62 Report #: [id number] THIS REPORT FOR: cc: NANDA BRADLEY MD Physician not on staff Susanna Gutierrez MD ~ CC: NANDA Gutierrez Physician staff DATE OF SERVICE: 04/19/2019 PRIMARY CARE PHYSICIAN: Dr. Nanda Bradley. CHIEF COMPLAINT: "I am having some left shoulder pain and some pain in my hands and knees." HISTORY: The patient is a 58-year-old gentleman who has been followed in the pain clinic. As you recall, he has a number of problems. He has undergone surgeries. Continues to have pain and discomfort in the lower portion of his back. He had been given the option of considering a spinal cord stimulator. 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 Continues to use medications sparingly. He finds that these medications enable him to continue to be gainfully employed when his job requires welding with lots of bending and twisting. He has returned today with the hopes of renewing his medications. He feels that the Gralise medication has been more helpful than gabapentin. Rates his pain as a 4/10. Still has some numbness and tingling, pain and discomfort as well as muscle spasm in the back area. Does note that riding a car can be somewhat exacerbating. He has a 2.[address] to the pain clinic. This does increase his pain level after the long ride. ALLERGIES: No known drug allergies. CURRENT MEDICATIONS: Tramadol 50 mg one p.o. q. 4 hours, ibuprofen 200 mg, Requip 1 mg, Lipitor 40 mg, hydrocodone 5/325 one p.o. b.i.d., Gralise 600 mg t.i.d. PAIN CLINIC ASSESSMENT AND PQRS: 1. The patient does have a history of osteoarthritis involving his back, spine, hands and knees. He is not being treated for rheumatoid arthritis. He does have some pain in his left shoulder. 2. Height is 5 feet 6 inches, weight 179 pounds, BMI is 29. 3. Vital signs: Blood pressure 128/73, pulse 79, respiratory rate 18, room air saturation 98.6. 4. Pain intensity 4/10. 5. Fall history: The patient has not fallen since we saw him last. [facility] [address] [place] [address] PAIN MANAGEMENT CONSULTATION Name: SINGH AVERY Room #: REG [facility]#: [id number] Admission: 04/19/19 Attend Phys: Susanna Gutierrez MD Discharge: Date of : 62 Report #: [id number] 6. Blood thinner. The patient is not on a blood thinning medication. 7. Hypertension. The patient is not being treated for hypertension. 8. Opioids greater than 6 weeks. The patient received medication from one source, pain clinic. 9. Risk assessment tool, low for opioid use. 10. Functional assessment tool . 11. Recreational drug use: The patient denies. 12. Tobacco: The patient stopped smoking 20 years ago. 13. Alcohol. The patient denies frequent use of alcoholic beverages. PHYSICAL EXAMINATION: GENERAL: The patient is a well-developed, well-nourished white male. Appears his stated age. Does complain of pain and discomfort in the low back area. Has some pain that radiates down into the low back and lower leg area: The patient is a well-developed, well-nourished white male. He is alert and oriented x 3. HEART: Regular rate. ABDOMEN: Nontender. EXTREMITIES: Upper extremity muscle strength judged to be 5-/5. Does have some pain in the left shoulder area. Lower extremity muscle strength judged to be 5-/5 for the major muscle groups in the lower extremity. The patient does have some pain and discomfort that radiates down into the lumbar area. IMPRESSION: 1. Status post back surgeries x 3 with rods and pedicle screws in place. 2. Hypertension. 3. Chronic intractable pain treated with neuropathic pain medications as well as opioids. 4. Restless leg syndrome. RECOMMENDATIONS: We discussed treatment options with the patient. At this juncture, he feels his medications are helpful. He is aware that the opioid medications can become problematic for certain people. He does not show any signs of opioid addiction. He has taken the medication as prescribed. Keeps his medications in a guarded area. We have discussed the benefits of release in helping control pain. The patient still has quite a bit of problems with restless leg syndrome. He is using Requip. He will continue with this medication. He will also continue with hydrocodone 5 mg 1 p.o. b.i.d. He states that these medications are having no effect on his thinking. He is able to think clearly and perform his job without any concerns. A script for his medications of hydrocodone 5 mg 1 p.o. b.i.d. has been rewritten. The patient will follow up in about 3 months. He will also continue with gabapentin 600 mg 1 p.o. t.i.d., taking 1800 mg with dinner. [address] [place] [address] PAIN MANAGEMENT CONSULTATION Name: GENASINGH VILLEDA Room #: REG ANDREI M.R.#: [id number] Admission: 04/19/19 Attend Phys: Susanna Gutierrez MD Discharge: Date of : 62 Report #: [id number] We would like to thank you for letting us participate in his care. We hope he continues to improve. <ELECTRONICALLY SIGNED> By: Susanna Gutierrez MD 04/29/19 [id number] Susanna Gutierrez MD /PMT
== END ==
LOC: PAIN 06:47
DX: M25.512 Pain in left shoulder (principal); I10 Essential (primary) hypertension; G89.4 Chronic pain syndrome; G25.81 Restless legs syndrome

== ENCOUNTER → 2019-07-19 | Outpatient (CLI) | payer BC ==
[~2019-07-19] VITALS: Ht 167.6 cm; Wt 79.7 kg
--- NOTE | ~2019-07-19 | HPC ---
[facility] [address] [place] [address] PAIN MANAGEMENT CONSULTATION Name: SINGH AVERY Room #: REG ANDREI Soriano.#: [id number] Admission: 07/19/19 Attend Phys: Susanna Gutierrez MD Discharge: Date of : 62 Report #: [id number] THIS REPORT FOR: cc: JOSELIN BRADLEY MD Physician not on staff Susanna Gutierrez MD ~ CC: JOSELIN Gutierrez Physician staff DATE OF SERVICE: 07/19/2019 CHIEF COMPLAINT: Here for medications. HISTORY: The patient is a 58-year-old gentleman who has been followed in the pain clinic because of chronic pain involving his legs. He continues to have some problems with his back. He is not a spinal cord stimulator candidate because of his job. He does welding. The patient feels that his medications are helpful. He has some tingling, aching and spasms. Notes that the pain can be exacerbated by riding in a car. Standing for a prolonged periods of time is problematic. He drives 2.5 hours to get to the pain clinic. This generally escalates his pain condition. ALLERGIES: No known drug allergies. CURRENT MEDICATIONS: Tramadol 50 mg one p.o. q. 4 hours, ibuprofen 200 mg, Requip 1 mg, Lipitor 40 mg, hydrocodone 5/325 one p.o. b.i.d., Gralise 600 mg t.i.d. PAIN CLINIC ASSESSMENT AND PQRS: 1. The patient has a history of osteoarthritis involving his back, spine, hands and knees. He is not being treated for rheumatoid arthritis. He does have some left shoulder pain. 2. Height 5 feet 6 inches, weight 175 pounds, BMI is 28.4. 3. Vital signs: Blood pressure 127/72, pulse 70, respiratory rate 16, room air saturation 98%. 4. Pain intensity 3-4/10. 5. Fall history: The patient has not fallen. 6. Blood thinner. The patient is not on a blood thinning medication. 7. Hypertension. The patient is not being treated for hypertension. 8. Opioids greater than 6 weeks, receives medication from one source. 9. Risk assessment tool, low for opioid use. 10. Functional assessment tool . 11. Recreational drug use. The patient denies. 12. Tobacco: The patient is a current smoker, smokes cigarettes. 13. Alcohol. The patient denies use of alcoholic beverages. [facility] [address] [place] [address] PAIN MANAGEMENT CONSULTATION Name: SINGH AVERY Room #: REG CLI [facility]#: [id number] Admission: 07/19/19 Attend Phys: Susanna Gutierrez MD Discharge: Date of : 62 Report #: [id number] PHYSICAL EXAMINATION: GENERAL: The patient is a well-developed, well-nourished white male. Appears his stated age. He is alert and oriented x 3. He has pain and discomfort in the low back area. Has some pain radiating down the back and lower portion of his legs. HEART: Regular rate. ABDOMEN: Nontender. EXTREMITIES: Upper extremity muscle strength judged to be 5/5 for the major muscle groups in the upper extremity. Lower extremity, the patient has strength 5-/5 for the major muscle groups in the lower extremity. IMPRESSION: 1. Status post back surgeries x 3 with rods and pedicle screws in place. 2. Hypertension. 3. Chronic intractable pain treated with neuropathic pain medications as well as opioids. 4. Restless leg syndrome. RECOMMENDATIONS: We discussed treatment with the patient. At this juncture, we will continue with his medications. Medications can become less effective because of development of tolerance. The patient is aware that certain patients may become addicted to the medication. He is showing no signs of addiction. We will continue with his medication. A script for his medications has been renewed. He has taken the day off. A script for his medications of hydrocodone 5 mg 1 p.o. b.i.d. has been written. He will also follow up in about 3 months. He will use gabapentin 600 mg 1 p.o. t.i.d. He will call us if he has any concerns. A script for his medications has been sent to his pharmacy. By: [id number] Susanna Gutierrez MD /MARTHA
[2019-07-19 08:16] VITALS: BP 127/72
--- NOTE | 2019-07-19 08:20 | NUR ---
Pain Clinic Assessment: 1. History of Osteoarthritis: spine hands knees History of Rheumatoid Arthritis: NO 2. Height: 5 ft. 6 in. 167.6 cm. Weight: 175.6 lb. oz. 79.652 kg. Patient's BMI: 28.4 3. Vital Signs: BP: 127/72 Pulse: 70 Resp: 16 Temp: 02 Sat: 98 ECG Mon: 4. Pain Intensity: 3-4 5. Fall Risk: Dizziness: N Needs help standing or walking: N Fallen in the last 3 months: N Fall risk comments: 6. Patient on Blood Thinner: None 7. History of Hypertension: N 8. Opioid Therapy greater than 6 weeks: Y Opiate Contract Signed: 10/13/17 9. Risk Assessment Tool Provided: low-0 10. Functional Assessment Tool: 11. Recreational Drug Use: Never Drug Type: Tobacco Use: Current Every Day Smoker Tobacco Type: Cigarettes Amount or Packs/day: How Many Years: Alcohol Use: No Frequency: Quant:
== END ==
LOC: PAIN 06:54
DX: M25.512 Pain in left shoulder (principal); M06.80 Other specified rheumatoid arthritis, unspecified site; I10 Essential (primary) hypertension; M79.2 Neuralgia and neuritis, unspecified; G25.81 Restless legs syndrome; Z79.899 Other long term (current) drug therapy; F11.90 Opioid use, unspecified, uncomplicated

== ENCOUNTER → 2019-10-18 | Outpatient (CLI) | payer BC ==
[~2019-10-18] VITALS: Ht 167.6 cm; Wt 80.7 kg
[2019-10-18 08:20] VITALS: BP 125/79
--- NOTE | 2019-10-18 08:25 | NUR ---
Pain Clinic Assessment: 1. History of Osteoarthritis: spine hands knees History of Rheumatoid Arthritis: NO 2. Height: 5 ft. 6 in. 167.6 cm. Weight: 177.8 lb. oz. 80.650 kg. Patient's BMI: 28.7 3. Vital Signs: BP: 125/79 Pulse: 79 Resp: 14 Temp: 02 Sat: 97 ECG Mon: 4. Pain Intensity: 3-4 AVG 7-8 DRIVING 5. Fall Risk: Dizziness: N Needs help standing or walking: N Fallen in the last 3 months: N Fall risk comments: 6. Patient on Blood Thinner: None 7. History of Hypertension: N 8. Opioid Therapy greater than 6 weeks: Y Opiate Contract Signed: 10/13/17 9. Risk Assessment Tool Provided: low-0 10. Functional Assessment Tool: 11. Recreational Drug Use: Never Drug Type: Tobacco Use: Current Every Day Smoker Tobacco Type: Cigarettes Amount or Packs/day: 1/2 How Many Years: Alcohol Use: No Frequency: Quant:
--- NOTE | 2019-11-01 15:50 | HPC ---
[facility] [address] [place] [address] PAIN MANAGEMENT CONSULTATION Name: SINGH AVERY Room #: REG ANDREI Soriano.#: [id number] Admission: 10/18/19 Attend Phys: Susanna Gutierrez MD Discharge: Date of : 62 Report #: [id number] THIS REPORT FOR: cc: JOSELIN BRADLEY MD Physician not on staff Susanna Gutierrez MD ~ CC: JOSELIN Gutierrez Physician staff DATE OF SERVICE: 10/18/2019 FOLLOWUP COMPLAINT: "Still have some twitching in the legs and low back pain." HISTORY: The patient is a 59-year-old gentleman who has been followed in the pain clinic because of chronic pain. He has had back surgery. He continues to have pain, which is problematic. He does have pain in the lower portion of his back. 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 He feels that his medications continue to be helpful. He does note some tingling and spasms. He notes that the pain is worse when he is riding in a car, standing as well as with driving. Certain activities can be problematic as well. He notes that his medications are helpful. He often repositions himself. He does do stretching activities. He rates his pain today as a 3-4 with activities and 7-[address] He does drive about 2-1/2 hours to get to the pain clinic. His pain generally is more problematic after that drive. ALLERGIES: No known drug allergies. CURRENT MEDICATIONS: Tramadol one p.o. q. 4 hours, ibuprofen 200 mg, Requip 1 mg, Lipitor 40 mg, hydrocodone 5/325 one p.o. b.i.d., and Gralise 600 mg t.i.d. PAIN CLINIC ASSESSMENT AND PQRS: 1. The patient does have a history of osteoarthritis involving his back, hands and knees. He is not being treated for rheumatoid arthritis. He does have some left shoulder pain. 2. Height 5 feet 6 inches, weight 177 pounds, BMI is 28. 3. Vital Signs: Blood pressure 125/79, pulse 79, respiratory rate 14, room air saturation is 97%. 4. Pain intensity 3-4/10 with normal activity, 7-8/10 [address] driving. 5. Fall history: The patient has not fallen in the last 3 months. 6. Blood thinner. The patient is not on a blood thinning medication. 7. Hypertension. The patient is not being treated for hypertension. 8. Opioids. The patient receives medication from the pain clinic. 9. Risk assessment tool, low for opioid use. 10. Functional assessment tool . [facility] [address] [place] [address] PAIN MANAGEMENT CONSULTATION Name: SINGH AVERY [id number] Admission: 10/18/19 Attend Phys: Susanna Gutierrez MD Discharge: Date of : 62 Report #: [id number] 11. Recreational drug use. The patient denies. 12. Tobacco: The patient currently smokes cigarettes. One-half pack of cigarettes per day for many years. 13. Alcohol. The patient denies frequent use of alcoholic beverages. PHYSICAL EXAMINATION: GENERAL: The patient is a well-developed, well-nourished white male. Appears his stated age. He is alert and oriented x 3. His affect is appropriate. Speech is fluent. HEENT: Normocephalic, atraumatic. Extraocular eye muscles intact. Sclerae nonicteric. Mucous membranes are moist. The patient is wearing a mask. HEART: Regular. LUNGS: Clear. ABDOMEN: Nontender. EXTREMITIES: Upper extremity muscle strength generally 5-/5 for the major muscle groups in the upper extremity. Lower extremity, the patient has 5-/5 pain with some increased pain and discomfort, particularly today because he has driven 2-1/2 hours to get to the pain clinic. IMPRESSION: 1. Status post back surgeries x 3 with rods and pedicle screws in place. 2. Hypertension. 3. Chronic intractable pain treated with neuropathic pain medication as well as opioids. 4. Restless legs syndrome. RECOMMENDATIONS: We discussed treatment options with the patient. At this juncture, we will continue with his medications. He still finds that his medications are efficacious. He is able to think clearly. 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 A script for his medications for the next 3 months have been provided. He will continue with hydrocodone 5/325 one p.o. b.i.d. He will also continue with gabapentin 600 mg 1 p.o. t.i.d. He will call us if he has any concerns. A prescription for his medications has been sent to his pharmacy. <ELECTRONICALLY SIGNED> By: Susanna Gutierrez MD 11/01/19 1550 [id number] Susanna Gutierrez MD /nt
== END ==
LOC: PAIN 06:46
PROVIDERS: ATTEND Anesthesiology Pain Medicine
DX: Z98.1 Arthrodesis status (principal); I10 Essential (primary) hypertension; F11.20 Opioid dependence, uncomplicated; M79.2 Neuralgia and neuritis, unspecified; Z79.899 Other long term (current) drug therapy

== ENCOUNTER → 2020-01-24 | Outpatient (CLI) | payer BC ==
[~2020-01-24] VITALS: Ht 170.2 cm; Wt 80.8 kg
[2020-01-24 08:11] VITALS: BP 119/74
--- NOTE | 2020-01-24 08:19 | NUR ---
Pain Clinic Assessment: 1. History of Osteoarthritis: spine hands knees History of Rheumatoid Arthritis: NO 2. Height: 5 ft. 7 in. 170.2 cm. Weight: 178.2 lb. oz. 80.831 kg. Patient's BMI: 27.9 3. Vital Signs: BP: 119/74 Pulse: 81 Resp: 18 Temp: 02 Sat: 97 ECG Mon: 4. Pain Intensity: 7 5. Fall Risk: Dizziness: N Needs help standing or walking: N Fallen in the last 3 months: N Fall risk comments: 6. Patient on Blood Thinner: None 7. History of Hypertension: N 8. Opioid Therapy greater than 6 weeks: Y Opiate Contract Signed: 10/13/17 9. Risk Assessment Tool Provided: low-0 10. Functional Assessment Tool: 11. Recreational Drug Use: Never Drug Type: Tobacco Use: Current Every Day Smoker Tobacco Type: Cigarettes Amount or Packs/day: 1/2PPD How Many Years: 38 Alcohol Use: No Frequency: Quant:
--- NOTE | 2020-01-25 22:01 | HPC ---
[facility] [address] [place] [address] PAIN MANAGEMENT CONSULTATION Name: SINGH AVERY Room #: REG ANDREI Soriano.#: [id number] Admission: 01/24/20 Attend Phys: Susanna Gutierrez MD Discharge: Date of : 62 Report #: [id number] THIS REPORT FOR: cc: JOSELIN BRADLEY MD Physician not on staff Susanna Gutierrez MD ~ CC: JOSELIN Gutierrez Physician staff DATE OF SERVICE: 01/24/2020 CHIEF COMPLAINT: Pain in the leg that goes down and into the back. HISTORY: The patient is a 59-year-old gentleman who has been followed in the pain clinic because of chronic pain. As you may recall, he has had back surgeries. He continues to have pain, which remains problematic. He rates his pain as a 6-7/10. He notes that activities such as riding in a car, standing and driving can be problematic. He does drive a significant distance to the pain clinic. After this 2-1/2 hours to ride he notes that his pain does increase. He has taken the medication as prescribed. He states that the COVID-19 pandemic is somewhat reaching into his neighborhood. He feels that his medications are working reasonably well. He continues to work on a regular basis. He has been working at this job for about 30 something years. He would like to continue with his medications. He is able to think clearly. They are not altering his sensorium. ALLERGIES: No known drug allergies. CURRENT MEDICATIONS: Tramadol 1 mg p.o. every 4 hours, ibuprofen 200 mg, Requip 1 mg, Lipitor 40 mg, hydrocodone 5/325 one p.o. b.i.d., and Gralise 600 mg t.i.d. PAIN CLINIC ASSESSMENT AND PQRS: 1. The patient does have a history of osteoarthritis involving his back. He has some problem with his hands and knees. He is not being treated for rheumatoid arthritis. He has had some problem with his left shoulder. 2. Height 5 feet 7 inches, weight 178 pounds, BMI 29. 3. Vital Signs: Blood pressure 119/74, pulse 81, respiratory rate 18, room air saturation is 97%. 4. Pain intensity /10. 5. Fall history: The patient has not fallen since we saw him last. 6. Blood thinner. The patient is not on a blood thinning medication. 7. Hypertension. The patient is not being treated for hypertension. 8. Opioids greater than 6 weeks. The patient receives medication from one source, [place] [address] PAIN MANAGEMENT CONSULTATION Name: SINGH AVERY Room #: REG [facility] Ezequiel#: [id number] Admission: 01/24/20 Attend Phys: Susanna Gutierrez MD Discharge: Date of : 62 Report #: [id number] 9. Risk assessment tool, low for opioid use. 10. Functional assessment tool reviewed, . 11. Recreational drug use: The patient denies. 12. Tobacco: The patient smokes 1-1/2 pack of cigarettes per day and has smoked for 38 years. 13. Alcohol. PHYSICAL EXAMINATION: GENERAL: The patient is a well-developed, well-nourished white male. Appears his stated age. He is alert and oriented x 3. His affect is appropriate. Speech is fluent. HEENT: Normocephalic, atraumatic. Extraocular eye muscles intact. Sclerae nonicteric. Mucous membranes are moist. NECK: Without adenopathy or JVD. HEART: Regular rate. LUNGS: Clear. The patient is wearing a facial covering. ABDOMEN: Nontender. EXTREMITIES: Upper extremity muscle strength generally rated 5-/5 for the major muscle groups in the upper extremity. Lower extremity, the patient has pain rated at 5-/5. He has been experiencing pain that radiates down into the lower portion of his back. It involves his buttocks and states that it is "not good." IMPRESSION: 1. Status post back surgery on 3 occasions with rods and pedicle screws in place. 2. Hypertension. 3. Chronic intractable pain with neuropathic pain, medications as well as using opioids. 4. Restless leg syndrome. RECOMMENDATIONS: We discussed treatment options with the patient. At this juncture, we will continue with his medications. He is not a candidate for a stimulator. 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 He feels overall that things are going reasonably well. He is able to think clearly. He does not use his medications at work, which would cause any problems with his sensorium. He feels that the gabapentin medication continues to be helpful. He will continue with his medications. We did have a long talk regarding the COVID-19 problem. We explained to the patient the benefits of a COVID injection. We explained the problems with COVID, which could be cardiovascular, cerebrovascular, pulmonary, liver, kidney, and peripheral vascular problems. He has been given a note indicating that he was seen in pain clinic. [address] [address] PAIN MANAGEMENT CONSULTATION Name: SINGH AVERY Room #: LUDIVINA Soriano.#: [id number] Admission: 01/24/20 Attend Phys: Susanna Gutierrez MD Discharge: Date of : 62 Report #: [id number] We would like to thank you for letting us participate in his care. We hope he continues to improve. <ELECTRONICALLY SIGNED> By: Susanna Gutierrez MD 01/25/20 2201 [id number] Susanna Gutierrez MD /nt
== END ==
LOC: PAIN 06:44
PROVIDERS: ATTEND Anesthesiology Pain Medicine
DX: G25.81 Restless legs syndrome (principal); G89.29 Other chronic pain; I10 Essential (primary) hypertension; Z98.890 Other specified postprocedural states; Z79.899 Other long term (current) drug therapy